=== PATIENT | female | born 1995 | race Caucasian/White ===

== ENCOUNTER 2022-04-16 06:38 | Inpatient (IN) | payer SELFPAY ==
[2022-04-16] MEDS ORDERED: Sodium Chloride 0.9% 20 ML SDV IV PRN (07:06)
[2022-04-16] MEDS ORDERED: Sodium Chloride 0.9% 10 ML Syringe FLUSH PRN (07:06)
[2022-04-16] MEDS ORDERED: Water For Irrigation,Sterile 1,000 ML Container IRR PRN (07:06)
[2022-04-16] MEDS ORDERED: Carboprost Tromethamine 250 MCG/1 ML Amp IM PRN (07:06)
[2022-04-16] MEDS ORDERED: Butorphanol 1 MG/ML SDV IVPUSH PRN (07:06)
[2022-04-16] MEDS ORDERED: Methylergonovine 0.2 MG/1 ML Amp IM PRN (07:06)
[2022-04-16] MEDS ORDERED: Sodium Chloride 0.9% 2.5 ML Syringe FLUSH PRN (07:06)
[2022-04-16] MEDS ORDERED: Tranexamic Acid 1,000 MG in Sodium Chloride 0.9% 100 ML IV PRN (07:06)
[2022-04-16] MEDS ORDERED: Lidocaine 1% 50 ML MDV INJECT PRN (07:06)
[2022-04-16] MEDS ORDERED: Misoprostol 200 MCG Tab PO PRN (07:06)
[2022-04-16] MEDS ORDERED: Ampicillin 2 GM in Sodium Chloride 0.9% 100 ML IV ONE ×2 (07:06→07:30)
[2022-04-16] MEDS ORDERED: Oxytocin/0.9 % Sodium Chloride 30 UNIT/500 ML BAG ONE (07:07)
[2022-04-16] MEDS ORDERED: Sodium Chloride 0.9% 100 ML ONE (07:12)
[2022-04-16] MEDS ORDERED: Oxytocin/0.9 % Sodium Chloride 30 UNIT/500 ML BAG IV SCH (07:15)
[2022-04-16] MEDS ORDERED: Lactated Ringers 1,000 ML IV SCH (07:15)
[2022-04-16] MEDS ORDERED: Ampicillin 1 GM Vial ONE (07:16)
[2022-04-16] MEDS ORDERED: Ibuprofen 800 MG Tab PO PRN (10:18)
[2022-04-16] MEDS ORDERED: Lanolin 100% Cream 7 GM Tube TOP PRN (10:18)
[2022-04-16] MEDS ORDERED: Acetaminophen 500 MG Tab PO PRN ×2 (10:18)
[2022-04-16] MEDS ORDERED: Bisacodyl 10 MG Supp RECTAL PRN (10:18)
[2022-04-16] MEDS ORDERED: Ibuprofen 400 MG Tab PO PRN (10:18)
[2022-04-16] MEDS ORDERED: Docusate Sodium 100 MG Cap PO PRN (10:18)
[2022-04-16] MEDS ORDERED: Benzocaine/Menthol 20%-0.5% Spray 78 GM Cannister TOP PRN (10:18)
[2022-04-16] MEDS ORDERED: Witch Hazel Medicated Pads 40/Jar TOP PRN (10:18)
[2022-04-16] MEDS ORDERED: Ampicillin 1 GM in Sodium Chloride 0.9% 50 ML IV SCH (18:00)
== END 2022-04-18 10:36 | disposition home or self-care (01) | DRG 807 ==
LOC: MW.OBCHECK 06:38 → MW.OB 06:39 → MW.OBCHECK 07:07 → MW.OB 07:07 → OBSVTOIN 07:58 → MW.OB 11:26
PROVIDERS: ADMIT Obstetrics & Gynecology Obstetrics; ATTEND Obstetrics & Gynecology Obstetrics
PROC: 10E0XZZ Delivery of Products of Conception, External Approach (ICD-10-PCS; principal; 2022-04-16)
PROC: 0KQM0ZZ Repair Perineum Muscle, Open Approach (ICD-10-PCS; 2022-04-16)
PROC: 10907ZC Drainage of Amniotic Fluid, Therapeutic from Products of Conception, Via Natural or Artificial Opening (ICD-10-PCS; 2022-04-16)
DX: O48.0 Post-term pregnancy (principal); Z37.0 Single live birth; Z3A.40 40 weeks gestation of pregnancy; O99.824 Streptococcus B carrier state complicating childbirth; Z87.891 Personal history of nicotine dependence; Z20.822 Contact with and (suspected) exposure to COVID-19
CPT/HCPCS: 36415; 59025; 59409; 85014; 85018; 85027; 86592; 86803; 86850; 86900; 86901; A9270-GY; J0290; J2001; J2590; J7120; U0002

== ENCOUNTER 2025-03-02 13:58 | Inpatient (IN) | payer OTHER ==
[2025-03-02] MEDS ORDERED: Sodium Chloride 0.9% 2.5 ML Syringe FLUSH PRN (14:23)
[2025-03-02] MEDS ORDERED: Sodium Chloride 0.9% 10 ML Syringe FLUSH PRN (14:23)
[2025-03-02] MEDS: Lactated Ringers 2,000 ML IV ONE ×2 (14:36)
[2025-03-02 14:38] LABS: BASOPHILS ABSOLUTE AUTO 0.01 K/uL (0.00-0.20); BASOPHILS PERCENT AUTO 0.1 % (0.0-1.0); EOSINOPHILS ABSOLUTE AUTO 0.02 K/uL (0.00-0.45); EOSINOPHILS PERCENT AUTO 0.1 % (0.0-6.0); HEMATOCRIT 36.8 % (37.0-47.0); HEMOGLOBIN 12.2 g/dL (12.0-16.0); IMMATURE GRAN ABSOLUTE AUTO 0.08 K/uL (0.00-0.05); IMMATURE GRAN PERCENT AUTO 0.6 % (0.0-0.4); LYMPHOCYTES ABSOLUTE AUTO 0.54 K/uL (1.00-4.80); LYMPHOCYTES PERCENT AUTO 3.8 % (24.0-44.0); MEAN CORPUSCULAR HEMOGLOBIN 27.7 pg (28.0-32.0); MEAN CORPUSCULAR HGB CONC 33.2 g/dL (32.0-36.0); MEAN CORPUSCULAR VOLUME 83.6 fL (83.0-99.0); MEAN PLATELET VOLUME 9.6 fL (9.4-12.3); MONOCYTES ABSOLUTE AUTO 0.69 K/uL (0.00-0.80); MONOCYTES PERCENT AUTO 4.9 % (0.0-8.0); NEUTROPHILS ABSOLUTE AUTO 12.73 K/uL (1.80-7.70); NEUTROPHILS PERCENT AUTO 90.5 % (41.0-71.0); PLATELET COUNT,PLT 184 K/uL (150-400); WHITE BLOOD CELL COUNT,WBC 14.07 K/uL (3.9-11.3)
[2025-03-02] MEDS: Acetaminophen 325 MG Tab PO ONE (14:53)
[2025-03-02] MEDS: Clindamycin Phosphate in D5W 900 MG in Premix Bag 1 BAG IV ONE (14:54)
[2025-03-02 15:03] LABS: BILIRUBIN,URINE NEGATIVE (NEGATIVE); COLOR,URINE YELLOW; GLUCOSE,URINE NEGATIVE (NEGATIVE); KETONES,URINE NEGATIVE (NEGATIVE); LEUKOCYTE ESTERASE,URINE TRACE (NEGATIVE); NITRITE,URINE NEGATIVE (NEGATIVE); OCCULT BLOOD,URINE LARGE (NEGATIVE); PROTEIN,URINE TRACE mg/dL (NEGATIVE); UROBILINOGEN,URINE 0.2 EU/dL (<2.0)
[2025-03-02 15:11] LABS: APPEARANCE,URINE HAZY
[2025-03-02 15:15] LABS: BACTERIA,URINE FEW (NEGATIVE); EPITHELIAL CELLS,URINE OCCASIONAL (NONE-FEW)
[2025-03-02 15:15] LABS: A/G RATIO 0.7 (0.9-1.6); ALBUMIN 2.7 g/dL (3.4-5.0); BILIRUBIN TOTAL 0.3 mg/dL (0.2-1.0); CALCIUM 8.6 mg/dL (8.5-10.1); CARBON DIOXIDE,CO2 25.6 mmol/L (21.0-32.0); CREATININE 0.7 mg/dL (0.6-1.0); EST CRCL DRUG DOSING (CG) 118.54 mL/min; POTASSIUM,K 3.4 mmol/L (3.5-5.1); PROTEIN TOTAL,TP 6.5 g/dL (6.4-8.2)
[2025-03-02 15:27] LABS: LACTIC ACID 1.4 mmol/L (0.4-2.0)
[2025-03-02] MEDS: Ampicillin 2 GM in Sodium Chloride 0.9% 100 ML IV ONE (16:42)
[2025-03-02] MEDS ORDERED: oxyCODONE 5 MG Tab PO PRN (17:02)
[2025-03-02] MEDS: Ketorolac 30 MG/ML SDV IVPUSH SCH (17:28)
[2025-03-02] MEDS: Acetaminophen 500 MG Tab PO SCH (21:05)
[2025-03-02] MEDS: Clindamycin Phosphate in D5W 900 MG in Premix Bag 1 BAG IV SCH (22:39)
[2025-03-02] MEDS: Ampicillin 2 GM in Sodium Chloride 0.9% 100 ML IV SCH (23:36)
[2025-03-03] MEDS: Ampicillin 2 GM Vial ONE (04:26)
[2025-03-03 11:51] LABS: BASOPHILS ABSOLUTE AUTO 0.02 K/uL (0.00-0.20); BASOPHILS PERCENT AUTO 0.2 % (0.0-1.0); EOSINOPHILS ABSOLUTE AUTO 0.02 K/uL (0.00-0.45); EOSINOPHILS PERCENT AUTO 0.2 % (0.0-6.0); HEMATOCRIT 31.7 % (37.0-47.0); HEMOGLOBIN 10.5 g/dL (12.0-16.0); IMMATURE GRAN ABSOLUTE AUTO 0.04 K/uL (0.00-0.05); IMMATURE GRAN PERCENT AUTO 0.4 % (0.0-0.4); LYMPHOCYTES ABSOLUTE AUTO 0.89 K/uL (1.00-4.80); LYMPHOCYTES PERCENT AUTO 8.1 % (24.0-44.0); MEAN CORPUSCULAR HEMOGLOBIN 28.2 pg (28.0-32.0); MEAN CORPUSCULAR HGB CONC 33.1 g/dL (32.0-36.0); MEAN PLATELET VOLUME 9.7 fL (9.4-12.3); MONOCYTES ABSOLUTE AUTO 0.62 K/uL (0.00-0.80); MONOCYTES PERCENT AUTO 5.6 % (0.0-8.0); NEUTROPHILS ABSOLUTE AUTO 9.45 K/uL (1.80-7.70); NEUTROPHILS PERCENT AUTO 85.5 % (41.0-71.0); PLATELET COUNT,PLT 202 K/uL (150-400); RED BLOOD CELL COUNT 3.73 M/uL (4.10-5.30); WHITE BLOOD CELL COUNT,WBC 11.04 K/uL (3.9-11.3)
[2025-03-03 12:14] LABS: A/G RATIO 0.6 (0.9-1.6); ALBUMIN 2.3 g/dL (3.4-5.0); BILIRUBIN TOTAL 0.3 mg/dL (0.2-1.0); CALCIUM 8.4 mg/dL (8.5-10.1); CARBON DIOXIDE,CO2 24.6 mmol/L (21.0-32.0); CREATININE 0.7 mg/dL (0.6-1.0); EST CRCL DRUG DOSING (CG) 118.54 mL/min; POTASSIUM,K 3.5 mmol/L (3.5-5.1)
[2025-03-04 17:35] LABS: BASOPHILS ABSOLUTE AUTO 0.02 K/uL (0.00-0.20); BASOPHILS PERCENT AUTO 0.3 % (0.0-1.0); EOSINOPHILS ABSOLUTE AUTO 0.18 K/uL (0.00-0.45); EOSINOPHILS PERCENT AUTO 2.6 % (0.0-6.0); HEMOGLOBIN 10.6 g/dL (12.0-16.0); IMMATURE GRAN ABSOLUTE AUTO 0.02 K/uL (0.00-0.05); IMMATURE GRAN PERCENT AUTO 0.3 % (0.0-0.4); LYMPHOCYTES ABSOLUTE AUTO 1.55 K/uL (1.00-4.80); LYMPHOCYTES PERCENT AUTO 22.7 % (24.0-44.0); MEAN CORPUSCULAR HEMOGLOBIN 28.1 pg (28.0-32.0); MEAN CORPUSCULAR HGB CONC 33.1 g/dL (32.0-36.0); MEAN CORPUSCULAR VOLUME 84.9 fL (83.0-99.0); MEAN PLATELET VOLUME 9.5 fL (9.4-12.3); MONOCYTES ABSOLUTE AUTO 0.67 K/uL (0.00-0.80); MONOCYTES PERCENT AUTO 9.8 % (0.0-8.0); NEUTROPHILS PERCENT AUTO 64.3 % (41.0-71.0); PLATELET COUNT,PLT 287 K/uL (150-400); RED BLOOD CELL COUNT 3.77 M/uL (4.10-5.30); WHITE BLOOD CELL COUNT,WBC 6.84 K/uL (3.9-11.3)
[2025-03-04 18:08] LABS: A/G RATIO 0.7 (0.9-1.6); ALBUMIN 2.5 g/dL (3.4-5.0); BILIRUBIN TOTAL 0.2 mg/dL (0.2-1.0); CALCIUM 8.6 mg/dL (8.5-10.1); CARBON DIOXIDE,CO2 24.7 mmol/L (21.0-32.0); CREATININE 0.8 mg/dL (0.6-1.0); EST CRCL DRUG DOSING (CG) 103.73 mL/min; PROTEIN TOTAL,TP 6.3 g/dL (6.4-8.2)
== END 2025-03-04 21:05 | disposition home or self-care (01) | DRG 776 ==
LOC: MW.ED 13:58 → MW.OB 14:55
PROVIDERS: ADMIT Obstetrics & Gynecology; ATTEND Obstetrics & Gynecology
DX: O86.12 Endometritis following delivery (principal); O73.1 Retained portions of placenta and membranes, without hemorrhage; E86.0 Dehydration; Z79.899 Other long term (current) drug therapy
CPT/HCPCS: 36415; 76856; 76856-26; 80053; 81001; 83605; 83690; 85025; 87040; 99221; 99231; 99239; 99283; 99285; A9270-GY; J0290; J0736; J1580; J1885; J7120